=== PATIENT | female | born 1980 | race Caucasian/White ===

== ENCOUNTER → 2019-12-07 07:39 | Outpatient (CLI) | payer OTHER, SELFPAY ==
--- NOTE | ~2019-12-07 | MR_ITS ---
EXAMINATION: MR cervical spine wo con EXAM DATE: 12/07/2019 08:30 INDICATION: Neck pain, right shoulder and arm pain since July 2019. TECHNIQUE: Multi-sequential, multiplanar MR images of the cervical spine were obtained without contra st. Axial T2, axial T2 MERGE sequence. Sagittal T1, T2, T2 fat saturation images also obtained. Th ere is no prior study for comparison. FINDINGS: There is a moderate-sized right central disc protrusion/extrusion at the C5-6 level indent ing the spinal cord without cord edema, and also narrowing the C5-6 right lateral recess. This is lik geovanny the etiology for patient's symptoms as described above. Mild to moderate loss of this disc height and mild kyphosis centered at this level. The vertebral body and disc heights are otherwise well maintained. The vertebral bodies are aligned i n the AP dimension. Cervicomedullary junction is normal in appearance. There are no suspicious marrow signal abnormalities. Paraspinal soft tissue is unremarkable. Level by level evaluation: C2-C3: Disc does not extend beyond the endplate margin. Uncovertebral joint arthropathy: None. Facet joint arthropathy: None. Neural foraminal stenosis: No stenosis. Central canal stenosis: No stenosis. C3-C4: Disc does not extend beyond the endplate margin. Uncovertebral joint arthropathy: None. Facet joint arthropathy: Mild bilateral. Neural foraminal stenosis: No stenosis. Central canal stenosis: No stenosis. C4-C5: Disc does not extend beyond the endplate margin. Uncovertebral joint arthropathy: Minimal bilateral. Facet joint arthropathy: Mild bilateral. Neural foraminal stenosis: No stenosis. Central canal stenosis: No stenosis. C5-C6: Moderate-sized right central protrusion/extrusion extending into the neural foramina. Uncovertebral joint arthropathy: Mild to moderate right, mild left. Facet joint arthropathy: None. Neural foraminal stenosis: Mild to moderate at the lateral recess. Central canal stenosis: Mild. C6-C7: Disc does not extend beyond the endplate margin. Uncovertebral joint arthropathy: Mild bilateral. Facet joint arthropathy: None. Neural foraminal stenosis: Mild left. Central canal stenosis: No stenosis. C7-T1: Disc does not extend beyond the endplate margin. Uncovertebral joint arthropathy: None. Facet joint arthropathy: None. Neural foraminal stenosis: No stenosis. Central canal stenosis: No stenosis. IMPRESSION: C5-6 moderate-sized right central protrusion indenting the spinal cord and narrowing the right lateral recess. No cord edema to suggest acute cord compression. Reviewed, dictated and finalized at location B. IMPRESSION: C5-6 moderate-sized right central protrusion indenting the spinal c ord and narrowing the right lateral recess. No cord edema to suggest acute cord compression.
== END ==
PROVIDERS: PCP Physician Assistant Medical; Visit Provider Physician Assistant Medical
DX: M25.511 Pain in right shoulder (principal); R20.2 Paresthesia of skin; M50.222 Other cervical disc displacement at C5-C6 level
CPT/HCPCS: 72141

== ENCOUNTER 2022-06-12 16:51 | Emergency (ER) | payer OTHER, SELFPAY ==
--- NOTE | 2022-06-12 16:54 | ED.URI ---
HPI - URI/Sore Throat General Chief Complaint: Upper Respiratory Infection Stated Complaint: Congestion,Cough,Bilateral Ear Irritation Time Seen by Provider: 06/12/22 17:03 Source: patient, RN notes reviewed and old records reviewed Mode of arrival: ambulatory Limitations: no limitations History of Present Illness HPI Narrative: 41-year-old female presents to the [facility] with 6-7 days of cough, congestion, bilateral ear pain. Has tried multiple onap-quu-elrfiwt products. Has had low-grade fevers. and child are sick at home. Related Data Allergies Allergy/AdvReac Type Severity Reaction Status Date / Time Sulfa (Sulfonamide Allergy Mild RASH,ITCHIN Verified 06/12/22 17:08 Antibiotics) G Review of Systems Review of Systems: All systems reviewed & are unremarkable except as noted in HPI and below Constitutional: Constitutional: Reports as per HPI Eyes: Eyes: Reports no additional eye complaints ENT: Reports as per HPI Cardiovascular: Cardiovascular: Reports no additional cardiovascular complaints, Denies chest pain and Denies dyspnea Respiratory: Respiratory: Reports as per HPI, Reports chest congestion, Reports cough and Denies dyspnea Gastrointestinal: Gastrointestinal: Reports no additional gastrointestinal complaints, Denies abdominal pain, Denies nausea and Denies vomiting Musculoskeletal: Musculoskeletal: Reports no additional musculoskeletal complaints Integumentary/Breasts: Skin/Breast: Reports system reviewed and no additional complaints, except as docu Neurologic: Reports system reviewed and no additional complaints, except as documented Psychiatric: Psychiatric: Reports no additional psychiatric complaints Allergic/Immunologic: Allergic/Immunologic: Reports no additional allergic/immunologic complaints PMFSH Comments At the time of my signature, I reviewed and agree with the nursing past medical, surgical, social, and family history. There is no relevant family history pertinent to the patient complaint. Exam Const: General: cooperative, healthy appearing, comfortable, no acute distress, well developed, alert and well nourished Nutritional Appearance: well nourished and obese Orientation/consciousness: patient oriented x3 Limitations: no limitations HENMT: Head: normal to inspection Ears: hearing grossly normal bilaterally and external ears normal Face/Nose/Sinus: Normal external nose present, Normal nares present, Normal nasal mucous membranes and turbinates present and normal facial exam Face and sinus: normal facial exam Mouth: Yes Normal oral and palatal mucosa present, Yes lip normal and Yes moist mucous membranes Throat: posterior oropharynx normal and uvula midline Eyes: General: appearance normal, both eyes and all related structures Alignment and Position: alignment normal Periorbital: periorbital findings normal Conjunctivae: conjunctivae normal Pupils: Equal, round and reactive pupils present EOM: EOMs intact bilaterally Neck: Neck: normal visual inspection, full ROM, no lymphadenopathy and no meningeal signs Chest: Chest palpation & inspection: normal inspection of the chest Resp: Effort & Inspection: normal respiratory effort and able to speak in complete sentences Auscultation: no crackles, no rales, no rhonchi and wheezes expiratory wheezes and left lower Cardio: Rate: regular rate Rhythm: regular rhythm Back/Spine/Pelvis: Cervical Spine: cervical ROM normal Thoracic/Lumbar Spine: No thoracic spinal tenderness Skin: General skin exam: normal color and no rashes or lesions noted Lesions: no lesions Rashes: no rashes Wounds: no wounds Neuro: General: patient oriented x3, gait normal, tone normal, moves all extremities and no meningeal signs Cranial nerves: Yes Equal, round and reactive pupils present Cognition (Neuro): normal cognition Speech: normal speech Gait exam (Neuro): Normal gait present Extrem: General: normal to inspection, full ROM, capillary r
[2022-06-12 17:02] VITALS: BP 137/92; PULSE 91; RESP 18; TEMP 36.2; O2SAT 100
== END 2022-06-12 17:19 | disposition home or self-care (01) ==
PROVIDERS: Emergency Provider Nurse Practitioner; PCP Physician Assistant Medical
DX: J40 Bronchitis, not specified as acute or chronic (principal)
CPT/HCPCS: 99213; G0463

== ENCOUNTER 2022-10-02 07:21 | Outpatient (CLI) | payer OTHER, SELFPAY ==
--- NOTE | 2022-10-02 | ECHO_ITS ---
Patient Info Name: Kimmy Rodrigues Age: 41 years : 1980 Gender: Female Ht: 67 in Wt: 300 lbs BSA: 2.61 m2 HR: 84 bpm BP: 155 / 101 mmHg Heart Rhythm: Sinus Rhythm Exam Date: 10/02/2022 8:19 AM Exam Location: [facility] Patient Status: Outpatient Admit Date: 10/02/2022 Staff Ordering Physician: Constantino Clifford MD (nasreen/sudhir) Auto Rental Clerk: Fran Murray, RDCS, RT Attending Provider: Constantino Clifford MD (nasreen/sudhir) Referring Physician: Darrin DE SOUZA; Exam Type: CA echo doppler color flow Study Info Indications R00.2 - Palpitations Complete two-dimensional, color flow and Doppler transthoracic echocardiogram is performed. Strain analysis performed. Summary 1. Complete two-dimensional, color flow and Doppler transthoracic echocardiogram is performed. 2. Technically difficult parasternal images but good quality apical images presumably related to obesity. 3. Normal left ventricular systolic and diastolic function. 4. No valvular dysfunction. 5. Very small amount of tricuspid regurgitation seen. Left Ventricle Left ventricular chamber dimension is normal. Left ventricular systolic function is normal, estimated at 60-65%. The left ventricular diastolic function is normal. Right Ventricle Right ventricular chamber dimension is normal. Left Atria Left atrial chamber dimension is normal. Right Atria Right atrial chamber dimension is normal. Aortic Valve The aortic valve is normal. Pulmonic Valve The pulmonic valve is not well visualized. Mitral Valve The mitral valve has normal leaflets. Tricuspid Valve The tricuspid valve leaflets are normal. There is trace tricuspid valve regurgitation. Pericardium/Pleural The pericardium appears normal. Aorta The aortic root size at the sinus of Valsalva is normal. Left Ventricular Outflow Tract Name Value Normal LVOT Doppler LVOT Peak Gradient 4 mmHg LVOT Mean Gradient 2 mmHg LVOT VTI 20 cm LVOT VTI/AV VTI Ratio 0.7 Mitral Valve Name Value Normal MV Doppler MV Decel [place] 574 cm/s2 MV PHT 37 ms MV Area (PHT) 6.0 cm2 4.0-5.0 MV Diastolic Function MV E Peak Velocity 73 cm/s MV A Peak Velocity 67 cm/s MV E/A 1.1 MV Decel Time 127 ms MV Annular TDI MV E/e' (Septal) 7.3 <=8.0 MV E/e' (Lateral) 4.5 <=8.0 MV E/e' (Average) 5.9 Tricuspid Valve N
== END 2022-10-02 07:22 | disposition home or self-care (01) ==
PROVIDERS: PCP Nurse Practitioner Family; Visit Provider Internal Medicine
DX: R00.2 Palpitations (principal)
CPT/HCPCS: 93306

== ENCOUNTER 2024-06-16 09:41 | Emergency (ER) | payer OTHER, SELFPAY ==
--- NOTE | ~2024-06-16 | US_ITS ---
EXAMINATION: US transvaginal DATE: 06/16/2024 14:19 INDICATION: Left pelvic pain. TECHNIQUE: Multiple transvaginal sonographic images of the pelvis were obtained. COMPARISON: None. FINDINGS: The uterus measures 9.1 x 4.6 x 5.5 cm. There is no free fluid in the pelvis. The endometrial complex measures 5 mm in thickness. There is a 10 mm submucosal fibroid. There is a 13 mm intramural fibroid . There is a 2.0 cm intramural fibroid. The right ovary measures 3.2 x 3.0 x 2.3 cm. The left ovary i s not visualized. IMPRESSION: 1. Uterine fibroids. 2. Left ovary not visualized. Reviewed, dictated and finalized at location A. TUB COOKER
--- NOTE | ~2024-06-16 | CT_ITS ---
EXAMINATION: CT abdomen pelvis w con DATE: 06/16/2024 14:31 INDICATION: Left lower quadrant abdominal pain. TECHNIQUE: Computed tomography (CT) of the abdomen and pelvis was performed with 100 mL Omnipaque 350 intravenous contrast. Automated exposure control and iterative reconstruction technique were employe d. The dose-length product was 1518.67 mGy-cm. COMPARISON: CT abdomen 05/18/2005 FINDINGS: The visualized portions of lung bases demonstrate minimal atelectasis on the left. No pleur al effusion. The heart size is normal. No pericardial effusion. The liver, gallbladder, spleen, pancr eas, adrenal glands, and kidneys are normal. There are no dilated loops of bowel. The appendix is nor mal. There are no pathologically enlarged lymph nodes. There is no free intraperitoneal fluid. There are chronic bilateral L5 pars defects. There is mild thoracic and lumbar spondylosis. IMPRESSION: 1. No etiology for the patient's symptoms. Reviewed, dictated and finalized at location A. ER TENDER
[2024-06-16 09:44] VITALS: BP 206/103; PULSE 90; RESP 16; TEMP 36.6; O2SAT 98
--- NOTE | 2024-06-16 13:12 | ED_ITS ---
HPI - Abdominal Pain General Chief Complaint: Abdominal Pain <Shirley Aguilar PA-C - Last Filed: 06/16/24 13:13> Stated Complaint: LLQ pain <Shirley Aguilar PA-C - Last Filed: 06/16/24 13:13> Time Seen by Provider: 06/16/24 13:15 <Shirley Aguilar PA-C - Last Filed: 06/16/24 13:13> Focused HPI: Year old female presents to the emergency department for left lower quadrant/pelvic pain since 2:30 a.m. this morning. Patient describes the pain is waxing and waning. States when it is at its highest intensity it is sharp, otherwise it is dull. She is concerned she may have a ruptured ovarian cyst. She denies nausea, vomiting, diarrhea, dysuria hematuria, vaginal, discharge, concern for STDs. Denies history of kidney stones or flank pain. Last bowel movement yesterday and normal. GENERAL: Well-appearing, well-nourished, and in no acute distress. HEAD: Normocephalic, atraumatic. CHEST: Clear to auscultation. ?No respiratory distress. ABD: Tenderness to the left lower quadrant/pelvis no rebound or rigidity. No CVA tenderness. HEART: Regular rate and rhythm.? NEURO: ?Alert and oriented x3. Patient screened in triage and initial orders placed.? ?Additional care and disposition to be based upon?diagnostic testing and treatment. <Shirley Aguilar PA-C - Last Filed: 06/16/24 13:13> History of Present Illness HPI narrative: Agree with the HPI above <Gurjit Greer MD - Last Filed: 06/16/24 21:42> Related Data Allergies/Adverse Reactions: Allergies Allergy/AdvReac Type Severity Reaction Status Date / Time Sulfa (Sulfonamide Allergy Mild RASH,ITCHIN Verified 07/22/22 09:23 Antibiotics) G <Shirley Aguilar PA-C - Last Filed: 06/16/24 13:13> Review of Systems 2 Review of Systems: as reviewed above in HPI <Gurjit Greer MD - Last Filed: 06/16/24 21:42> PMFSH Social History Social History: Social History Smoking status: Never smoker Alcohol intake: current Alcohol use details: weekends Substance use: never Substance use type: does not use Lack of Transportation: No Lack of Food: Never True Current Housing: I Have Housing Concerned About Future Housing: No Difficulty Paying Gas/Electric Bills: No Difficulty Paying for Meds: No Currently Unemployed: No Education: Associate Degree Difficulty w/ Childcare or Family Care: No Living arrangements: with family Occupation/Education: occupation Gender identity (if verbalized by the patient): Female Sexual Orientation (if Verbalized by the Patient): Straight or Heterosexual <Shirley Aguilar PA-C - Last Filed: 06/16/24 13:13> Exam 2 Narrative: GENERAL: [Well-appearing, well-nourished, and in no acute distress.] HEAD: [Normocephalic, atraumatic.] EYES: [PERRLA and EOMI.] ENT: Nares clear, no rhinorrhea or epistaxis. Mucous membranes moist. NECK: Supple. CHEST: [Clear to auscultation. No respiratory distress.] HEART: [Regular rate and rhythm]. No murmur heard. [Normal peripheral pulses.] ABDOMEN: [Soft, nondistended], protuberant, minimally tender to palpation left lower quadrant but no rebound or guarding, no signs of peritonitis, negative obturator sign, negative straight leg raise test. EXTREMITIES: Normal range of motion. [No edema.] SKIN: Warm, dry, no rash. NEURO: [No focal deficits]. Alert and oriented [x3.] PSYCH: [Normal mood and affect.] <Gurjit Greer MD - Last Filed: 06/16/24 21:42> Course Vital Signs Vital signs: Vital Signs Temperature 36.6 C 06/16/24 09:44 Pulse Rate 90 06/16/24 09:44 Respiratory Rate 16 06/16/24 09:44 Blood Pressure 206/103 H 06/16/24 09:44 Pulse Oximetry 98 06/16/24 09:44 Temperature 36.6 C 06/16/24 09:44 Pulse Rate 90 06/16/24 09:44 Respiratory Rate 16 06/16/24 09:44 Blood Pressure 206/103 H 06/16/24 09:44 Pulse Oximetry 98 06/16/24 09:44 <Shirley Aguilar PA-C - Last Filed: 06/16/24 13:13> Vital Signs Temperature 36.6 C 06/16/24 09:44 Pulse Rate 90 06/16/24 09:44 Respiratory Rate 16 06/16/24 09:44 Blood Pressure 206/103 H 06/16/24 09:44 Pulse Oximetry 98 06/16/24 09:44 Temperature 36.6 C 06/16/24 09:44 Pulse Rate 90 06/16/24 09:44 Respiratory Rate 16 06/16/24 09:44 Blood Pressure 206/103 H 06/16/24 09:44 Pulse Oximetry 98 06/16/24 09:44 <Gurjit Greer MD - Last Filed: 06/16/24 21:42> MDM - Abdominal Pain MDM Narrative Medical decision making narrative: 43-year-old female presenting to the emergency department for intermittent left lower quadrant abdominal pain. She stated woke up from sleep at about 230 in the morning. When way without any significant complaints such as nausea vomiting. No diarrhea, no fever chills. Stated recurred while she was walking around at work today and want to get evaluated emergency department. She has a soft nondistended, minimally tender abdomen left lower quadrant but otherwise is well appearing. Is hypertensive with triage vital 206/103 but otherwise have no symptoms of hypertension, no chest pain, difficulty breathing, nausea, vomiting, back pain. She has strong symmetric pulses throughout. Warm extremities. She is concerned about a potential ovarian pathology such as a ruptured cyst. She has had multiple C-sections but no other abdominal surgeries in the past. She otherwise been in her normal state of health. Given her soft abdomen, no signs of peritonitis or significant abdominal tenderness suspicion for ovarian or abdominal pathology such as diverticulitis, diverticulosis, gastroenteritis, ovarian torsion versus less likely but possible. CT of the abdomen pelvis and ultrasound of the pelvis was obtained as well as laboratory studies. During my assessment the patient she is not having any pain and presently not requiring any analgesia. Workup shows no leukocytosis or anemia. normal Electrolytes within normal limits, normal renal and hepatic function panel. Normal platelets. urinalysis without signs of infection. Negative test. Ultrasound shows uterine fibroids, not visualized well left or very. Right ovary within normal limits. No free fluid in the pelvis. CT abdomen pelvis shows no etiology for patient's symptoms per radiology's interpretation. No intra-abdominal or peritoneal free fluid. Patient was re-evaluated and still having no symptoms at this time. We went over patient's imaging studies and laboratory assessment. I discussed the possibility that her fibroid uterus with multiple fibroids could be the cause of her vague intermittent pain and recommended trying therapies with high-dose NSAID therapy. I referred her to her OBGYN as well as trying her OBGYN follow- up instructions as well as return precautions. Patient felt comfortable this plan of care and was stable for discharge home at this time. She was given return precautions and will be follow-up instructions. <Gurjit Greer MD - Last Filed: 06/16/24 21:42> Medical Records Attestation: I reviewed the patient's medical records. <Gurjit Greer MD - Last Filed: 06/16/24 21:42> Lab Data Attestation: I reviewed the patient's lab results. <Gurjit Greer MD - Last Filed: 06/16/24 21:42> Result diagrams: 06/16/24 13:26 06/16/24 13:26 <Shirley Aguilar PA-C - Last Filed: 06/16/24 13:13> Labs: Lab Results 06/16/24 06/16/24 06/16/24 Range/Units 13:26 14:53 14:55 WBC 6.3 (4.5-10.0) K/mm3 RBC 4.07 L (4.2-5.4) M/mm3 Hgb 12.1 (12.0-15.0) g/dL Hct 36.3 L (37.0-47.0) % MCV 89.2 (80-100) fl MCH 29.7 (26-34) pg MCHC 33.3 (32-36) g/dl RDW 13.3 (11.5-14.5) % Plt Count 212 (150-375) k/mm3 MPV 10.0 (7.4-10.4) fl Immature Gran % (Auto) 0.2 (0-0.5) % Neut % (Auto) 70.3 (45.5-73.1) % Lymph % (Auto) 20.3 (18.3-44.2) % [place] % (Auto) 7.7 (2.6-8.5) % Eos % (Auto) 1.0 (0-4.4) % Baso % (Auto) 0.5 (0.2-1.2) % Lymph # (Auto) 1.27 (0.9-3.2) K/mm3 [place] # (Auto) 0.5 (0.1-0.6) K/mm3 Eos # (Auto) 0.1 (0-0.3) K/mm3 Baso # (Auto) 0.0 (0.0-0.1) K/mm3 Abs Immat Gran (auto) 0.01 (0.00-0.031) K/mm3 Absolute Neuts (auto) 4.4 (1.3-6.7) K/mm3 Absolute Nucleated RBC 0.000 (0.0-0.012) K/mm3 Nucleated RBC % 0.0 (0.0-0.2) % Sodium 137 (137-145) mmol/L Potassium 4.0 (3.4-5.0) mmol/L Chloride 107 (98-107) mmol/L Carbon Dioxide 26 (22-30) mmol/L Anion Gap 4 (4-12) mmol/L BUN 13 (7-17) mg/dL Creatinine 0.70 (0.7-1.0) mg/dL Estim Creat Clear Calc 134 ml/min Estimated GFR > 60 (59 - ) Glucose 99 (65-110) mg/dL Calcium 8.9 (8.4-10.2) mg/dL Total Bilirubin 0.8 (0.2-1.3) mg/dL AST 18 (14-36) U/L ALT 15 (6-35) U/L Alkaline Phosphatase 72 (38-126) U/L Total Protein 7.0 (6.3-8.2) g/dL Albumin 4.1 (3.5-5.1) g/dL Lipase 41 (23-300) U/L Urine Color Yellow (Yellow) Urine Appearance Clear (Clear) Urine pH 5.5 (5.0-9.0) Ur Specific [place] 1.013 (1.001-1.035) Urine Protein Negative (Negative) mg/dL Urine Glucose (UA) Negative (Negative) mg/dL Urine Ketones Negative (Negative) mg/dL Ur Blood (Man) Negative (Negative) Urine Nitrate Negative (Negative) Urine Bilirubin Negative (Negative) Urine Urobilinogen 0.2 (<2.0) mg/dL Leukocyte Esterase Rfl Negative (Negative) SHERRY/UL POC Urine HCG, Qual Negative (Negative) <Shirley Aguilar PA-C - Last Filed: 06/16/24 13:13> Lab Results 06/16/24 06/16/24 06/16/24 Range/Units 13:26 14:53 14:55 WBC 6.3 (4.5-10.0) K/mm3 RBC 4.07 L (4.2-5.4) M/mm3 Hgb 12.1 (12.0-15.0) g/dL Hct 36.3 L (37.0-47.0) % MCV 89.2 (80-100) fl MCH 29.7 (26-34) pg MCHC 33.3 (32-36) g/dl RDW 13.3 (11.5-14.5) % Plt Count 212 (150-375) k/mm3 MPV 10.0 (7.4-10.4) fl Immature Gran % (Auto) 0.2 (0-0.5) % Neut % (Auto) 70.3 (45.5-73.1) % Lymph % (Auto) 20.3 (18.3-44.2) % [place] % (Auto) 7.7 (2.6-8.5) % Eos % (Auto) 1.0 (0-4.4) % Baso % (Auto) 0.5 (0.2-1.2) % Lymph # (Auto) 1.27 (0.9-3.2) K/mm3 [place] # (Auto) 0.5 (0.1-0.6) K/mm3 Eos # (Auto) 0.1 (0-0.3) K/mm3 Baso # (Auto) 0.0 (0.0-0.1) K/mm3 Abs Immat Gran (auto) 0.01 (0.00-0.031) K/mm3 Absolute Neuts (auto) 4.4 (1.3-6.7) K/mm3 Absolute Nucleated RBC 0.000 (0.0-0.012) K/mm3 Nucleated RBC % 0.0 (0.0-0.2) % Sodium 137 (137-145) mmol/L Potassium 4.0 (3.4-5.0) mmol/L Chloride 107 (98-107) mmol/L Carbon Dioxide 26 (22-30) mmol/L Anion Gap 4 (4-12) mmol/L BUN 13 (7-17) mg/dL Creatinine 0.70 (0.7-1.0) mg/dL Estim Creat Clear Calc 134 ml/min Estimated GFR > 60 (59 - ) Glucose 99 (65-110) mg/dL Calcium 8.9 (8.4-10.2) mg/dL Total Bilirubin 0.8 (0.2-1.3) mg/dL AST 18 (14-36) U/L ALT 15 (6-35) U/L Alkaline Phosphatase 72 (38-126) U/L Total Protein 7.0 (6.3-8.2) g/dL Albumin 4.1 (3.5-5.1) g/dL Lipase 41 (23-300) U/L Urine Color Yellow (Yellow) Urine Appearance Clear (Clear) Urine pH 5.5 (5.0-9.0) Ur Specific [place] 1.013 (1.001-1.035) Urine Protein Negative (Negative) mg/dL Urine Glucose (UA) Negative (Negative) mg/dL Urine Ketones Negative (Negative) mg/dL Ur Blood (Man) Negative (Negative) Urine Nitrate Negative (Negative) Urine Bilirubin Negative (Negative) Urine Urobilinogen 0.2 (<2.0) mg/dL Leukocyte Esterase Rfl Negative (Negative) SHERRY/UL POC Urine HCG, Qual Negative (Negative) <Gurjit Greer MD - Last Filed: 06/16/24 21:42> Imaging Data Attestation: I personally reviewed and interpreted this imaging study as follows: < Gurjit Greer MD - Last Filed: 06/16/24 21:42> Radiologist's impression: ITS Impressions Transvaginal US 06/16/24 14:20 IMPRESSION: 1. Uterine fibroids. 2. Left ovary not visualized. Abdomen/Pelvis CT 06/16/24 14:49 IMPRESSION: 1. No etiology for the patient's symptoms. <Shirley Aguilar PA-C - Last Filed: 06/16/24 13:13> ITS Impressions Transvaginal US 06/16/24 14:20 IMPRESSION: 1. Uterine fibroids. 2. Left ovary not visualized. Abdomen/Pelvis CT 06/16/24 14:49 IMPRESSION: 1. No etiology for the patient's symptoms. <Gurjit Greer MD - Last Filed: 06/16/24 21:42> Discharge Plan Discharge Clinical Impression: Fibroid, uterine, Pelvic pain, Abdominal pain <Shirley Aguilar PA-C - Last Filed: 06/16/24 13:13> Patient Disposition: Home, Self-Care <Shirley Aguilar PA-C - Last Filed: 06/16/24 13:13> Condition: Stable <Shirley Aguilar PA-C - Last Filed: 06/16/24 13:13> Instructions: Antibiotic Form, Uterine Fibroids (ED), Abdominal Pain (ED) <Shirley Aguilar PA-C - Last Filed: 06/16/24 13:13> Additional Instructions: your CT scan and ultrasound shows uterine fibroids but no other acute process. No signs of infection, your labs look very reassuring. Recommendations to take high-dose ibuprofen and NSAID therapy and follow-up with group insurance special agent. Please call your own group insurance special agent but will also refer you to our woman center who can evaluate you on outpatient basis. Return with any new or worsening concerns at any time. <Shirley Aguilar PA-C - Last Filed: 06/16/24 13:13> Patient Language: Luxembourger <Shirley Aguilar PA-C - Last Filed: 06/16/24 13:13> Prescriptions: New ibuprofen 800 mg tablet 800 mg PO TID PRN (Reason: pain) Qty: 30 0RF No Action montelukast [Singulair] 10 mg tablet 10 mg PO DAILY Qty: 14 0RF codeine-guaifenesin 10-100 mg/5 mL liquid See Rx Instructions PO Q6H PRN (Reason: cough) Qty: 120 0RF Rx Instructions: 1-2 tsp orally every 6 hours PRN for cough fluticasone propionate [Flovent HFA] 110 mcg/actuation HFA aerosol inhaler 1 puff inhalation Q12H Qty: 12 1RF benzonatate 100 mg capsule 100 mg PO TID PRN (Reason: cough) Qty: 30 0RF metoprolol succinate 25 mg tablet extended release 24 hr 25 mg PO DAILY Qty: 30 1RF albuterol sulfate 90 mcg/actuation HFA aerosol inhaler 1 - 2 inh inhalation Q4-6H PRN (Reason: shortness of breath or wheezing) Qty: 8.5 0RF <Shirley Aguilar PA-C - Last Filed: 06/16/24 13:13> Follow-up/Referrals: Osmar Farmer MD [Physician] - 1 Week (Fibroids) Jessica Menezes, SOUND ENGINEER [employer]-C [Primary Care Provider] - <Shirley Aguilar PA-C - Last Filed: 06/16/24 13:13> Time of Disposition: 17:33 <Shirley Aguilar PA-C - Last Filed: 06/16/24 13:13> 17:33 <Gurjit Greer MD - Last Filed: 06/16/24 21:42>
[2024-06-16 13:57] LABS: Basophils Percent Auto 0.5 % (0.2-1.2); Eosinophils Absolute Auto 0.1 K/mm3 (0-0.3); Hematocrit 36.3 % (37.0-47.0); Hemoglobin 12.1 g/dL (12.0-15.0); Immature Granulocyte Absolute 0.01 K/mm3 (0.00-0.031); Immature Granulocyte Percent A 0.2 % (0-0.5); Lymphocytes Absolute Auto 1.27 K/mm3 (0.9-3.2); Lymphocytes Percent Auto 20.3 % (18.3-44.2); Mean Corpuscular HGB Conc 33.3 g/dl (32-36); Mean Corpuscular Hemoglobin 29.7 pg (26-34); Mean Corpuscular Volume 89.2 fl (80-100); Monocytes Absolute Auto 0.5 K/mm3 (0.1-0.6); Monocytes Percent Auto 7.7 % (2.6-8.5); Neutrophils Absolute Auto 4.4 K/mm3 (1.3-6.7); Neutrophils Percent Auto 70.3 % (45.5-73.1); Platelet Count Result 212 k/mm3 (150-375); Red Blood Count 4.07 M/mm3 (4.2-5.4); Red Cell Distribution Width 13.3 % (11.5-14.5); White Blood Count 6.3 K/mm3 (4.5-10.0)
[2024-06-16 14:10] LABS: Alanine Aminotransferase 15 U/L (6-35); Albumin Level 4.1 g/dL (3.5-5.1); Alkaline Phosphatase 72 U/L (38-126); Anion Gap 4 mmol/L (4-12); Aspartate Amino Transferase 18 U/L (14-36); Bilirubin,Total 0.8 mg/dL (0.2-1.3); Blood Urea Nitrogen 13 mg/dL (7-17); Calcium 8.9 mg/dL (8.4-10.2); Carbon Dioxide 26 mmol/L (22-30); Chloride 107 mmol/L (98-107); Estimated CRCL calculation 134 ml/min; Estimated Glomerular Filt Rate > 60; Glucose 99 mg/dL (65-110); Lipase 41 U/L (23-300); Sodium 137 mmol/L (137-145)
[2024-06-16 14:57] LABS: BEDSIDEPREGUCG Negative (Negative)
[2024-06-16 15:13] LABS: Add Urine Microscopic? NO; Appearance Urine Clear (Clear); Bilirubin Urine Negative (Negative); Blood Urine Negative (Negative); Color Urine Yellow (Yellow); Glucose Urine UA Negative (Negative); Ketones Urine Negative (Negative); Leukocyte Esterase Ur Negative LEU/UL (Negative); Nitrate Urine Negative (Negative); Protein Urine Negative (Negative); Specific Grav Ur 1.013 (1.001-1.035); Urobilinogen Urine 0.2 mg/dL (<2.0); pH Urine 5.5 (5.0-9.0)
== END 2024-06-16 18:10 | disposition home or self-care (01) ==
PROVIDERS: Physician Assistant; Emergency Provider Student in an Organized Health Care Education/Training Program; PCP Nurse Practitioner Family
DX: R10.2 Pelvic and perineal pain (principal); D25.9 Leiomyoma of uterus, unspecified
CPT/HCPCS: 36415; 74177; 76830; 80053; 81003; 81025; 83690; 85025; 99284; Q9967

== ENCOUNTER 2024-09-09 10:07 | Emergency (ER) | payer OTHER, SELFPAY ==
--- OUTSIDE RECORDS SUMMARY | 2024-09-09 10:10 | XMS_ITS ---
Author Organization Unknown Medications Medication Instructions Effective Dates (start - stop) Status 0.5 ML Bordetella pertussis filamentous hemagglutinin vaccine, inactivated 0.016 MG/ML / Bordetella pertussis pertactin vaccine, inactivated 0.005 MG/ML / Bordetella pertussis toxoid vaccine, inactivated 0.016 MG/ML / diphtheria toxoid vaccine, inactivated 5 UNT/ML / tetanus toxoid vaccine, inactivated 10 UNT/ML Prefilled Syringe [Boostrix] [id number]:00:00.000+00:0 0 - Completed codeine phosphate 2 MG/ML / guaifenesin 20 MG/ML Oral Solution [id number]:00:00.000+00:0 0 - Completed prednisone 10 MG Oral Tablet 08-13-23:00:00.000+00:00 - Completed 120 ACTUAT fluticasone propi sridhar 0.11 MG/ACTUAT Metered Dose Inhaler [Flovent] [id number]:00:00.000+00:0 0 - Completed - [id number]:00 :00.000+00:00 - Completed [id number] 200 ACTUAT albuter ol 0.09 MG/ACTUAT Metered Dose Inhaler [id number]:00:00.000+00:0 0 - Completed prednisone 20 MG Oral Tablet 07-26-29T:00:00.000+00:00 - Completed prednisone 10 MG Oral Tablet 08-12-16:00:00.000+00:00 - Completed 24 HR metoprolol succinate 5 0 MG Extended Release Oral Tablet [id number]:00:00.000+0 0:00 - Completed cefdinir 300 MG Oral Capsule 08-13-14:00:00.000+00:00 - Completed benzonatate 100 MG Oral Capsule [id number]:00:00.000+00:00 - Completed doxycycline monohydrate 100 MG Oral Capsule [id number]:00:00.000+00:0 0 - Completed cefdinir 300 MG Oral Capsule 08-12-16:00:00.000+00:00 - Completed - [id number]:00 :00.000+00:00 - Completed 24 HR metoprolol succinate 5 0 MG Extended Release Oral Tablet [id number]:00:00.000+0 0:00 - Completed montelukast 10 MG Oral Tablet 06-07-26:00:00.000+00:00 - Completed 24 HR metoprolol succinate 2 5 MG Extended Release Oral Tablet [id number]:00:00.000+0 0:00 - Completed Patient Care team information Name Category Status Period Participants - - Proposed period not known -
--- OUTSIDE RECORDS SUMMARY | 2024-09-09 10:10 | XMS_ITS | Clinical Summary ---
Author Organization [facility] [place] [address] Address [address] [place] [address] Care Team Providers Care Heavy Equipment Service Manager Name Role Phone Cony Dejesus Primary Care Provider [phone] Allergies Active Allergy Reactions Criticality Noted Date Comments Sulfa (Sulfonamide Antibiotics) Itching,Rash Medium Medications metoprolol XL (TOPROL-XL) 50 mg extended release tablet TAKE 1 TABLET BY MOUTH EVERY DAY 90 tablet 3 10/01/2023 Active Active Problems Problem Noted Date Diagnosed Date Morbid obesity 10/23/2022 Palpitations 09/11/2022 Lipid screening 09/11/2022 Family History Medical History Relation Name Comments Diabetes Maternal Grandmother Hypertension Maternal Grandmother Relation Name Status Comments Maternal Grandmother Social History Tobacco Use Types Packs/Day Years Used Date Smoking Tobacco: Never Smokeless Tobacco: Never Tobacco Cessation:Counseling Given: Not Answered Personal Safety Answer Date Recorded Getting School Help Needed Not on file 06/21 Comments Unknown Sex and Gender Information Value Date Recorded Sex Assigned at Not on file Legal Sex Female 11:08 AM PATIENT CLERICAL ASSISTANT Gender Identity Not on file Sexual Orientation Not on file Obstetrics History Last Filed Vital Signs Vital Sign Reading Time Taken Comments Blood Pressure 122/70 07/30/2023 8:20 AM PATIENT CLERICAL ASSISTANT Pulse 62 07/30/2023 8:20 AM PATIENT CLERICAL ASSISTANT Temperature - - Respiratory Rate - - Oxygen Saturation 98% 07/30/2023 8:20 AM PATIENT CLERICAL ASSISTANT Inhaled Oxygen Concentration - - Weight 140.6 kg (310 lb) 07/30/2023 8:20 AM PATIENT CLERICAL ASSISTANT Height 170.2 cm (5' 7 ) 07/30/2023 8:20 AM PATIENT CLERICAL ASSISTANT Body Mass Index 48.55 07/30/2023 8:20 AM PATIENT CLERICAL ASSISTANT Plan of Treatment Health Maintenance Due Date Last Done Comments Breast Cancer Screening-Mammogram 1982 Cervical Cancer Screening 1982 Depression Screening 1982 Hepatitis C Screening 1982 Varicella Vaccines (1 of 2 - 13+ 2-dose series) 10/19/1995 Regular Well Visit/Exam 18-64 2000 Covid-19 Vaccine ( season) 2024 08/03/2020 Influenza Vaccine (#1) 2024 , 02/24/2021, 01/22/2019, Additional history exists DTaP/Tdap/Td Vaccine (3 - Td or Tdap) 03/25/2032 03/25/2022, 03/28/2010 Hepatitis B Screening Completed 02/24/2021 , 10/14/2020, 09/10/2020 HPV Vaccines Aged Out No longer eligi ble based on patient's age to complete this topic Pneumococcal vaccine <65 Aged Out No longer eligible based on patient's age to complete this topic Insurance [facility] Care Teams Heavy Equipment Service Manager Relationship Specialty Start Date End Date Cony Dejesus PA [address] [place] [id number] PCP - General Family Practice 08/21/22
--- OUTSIDE RECORDS SUMMARY | 2024-09-09 10:10 | XMS_ITS | Data Portability ---
Author Organization [facility] [place] Address [address] [place] [place] [address] Care Team Providers Care Insulation Board Back Tender Name Role Phone DUNCAN FISHMAN Primary Care Provider [phone] Assessment Encounter Date Assessment Date Assessment LastModified by Organization Details LastModified Time 08/04/2024 08/04/2024 Annual gynecological exam performed. Patient will come back in a year unless there are new symptoms. [email or web address] Not available 08/04/2024 14:55:49 Plan of Treatment Reminders Order Date Submit Date Provider Last Modified By Organization Details Last Modified Time Details Appointments None recorded. Lab None recorded. Referral None recorded. Procedures None recorded. Surgeries None recorded. Imaging MAMMO, screening, digital, bilateral 2024 025 [facility], [address], [place], [address], 04:07:03 US, pelvis 2024 025 frank [place], [facility] [address], [place], [address], 21:43:51 US, transvagina l 2024 025 divine [place], [facility] [address], [place], [address], 21:43:51 Medication Orders None recorded. Patient TargetsNo targets recorded. Patient InstructionsNo instructions recorded. Reason for Referral None Reported. Results Created Date Observation Date Name Description Value Unit Range Abnormal Flag Note LastModifiedBy Organization Detail LastModifiedTime 08/04/1908/04/2024 IMAGE GUIDE D PAP AND HPV REGAR DLESS image guided Pap, HPV regardless of Pap result SEE RESULT S BELOW CASE REPOR T: Cytol ogy Gynec ologi alka Repor t Case: [id number] Autho yuko iglesias Provi benitez: Fiona Grover MD Colle cted: 08/04 1457 Order ing Locat ion: [place] [facility] Recei trena: 08/05 0121 First Scree n: Edwina Carranza, CT Rescr een: Susan Lancaster, CT Speci men: Ryliejohny lin Pap - Image d, Cervi x STATE MENT OF ADEQU ACY: Satis facto ry for evalu ation Trans forma tion zone compo nent absen t The absen ce of an endoc ervic al compo nent was confi rmed by an addit ional scree ner. ----- ----- ----- ----- ----- ----- ----- ----- ----- ----- ----- ----- ----- ----- ----- ----- ----- ---- FINAL DIAGN OSIS: Negat alice for Intra epith elial Jose manzanares or Christelle ward (NIL) . 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 COMME NT: This speci men was revie wed by a Cytot echno logis t and/o r Patho logis t (as indic ated in this repor t) after evalu ation using the Thinp rep Imagi ng Syste m. CLINI ALKA INFOR MATIO N: Menst rual Statu s: LMP (if appli cable ): Clini alka Histo ry/Pr eviou s Pap: Type of Neopl latisha (if appli cable ): Signi fican t Clini alka Findi ngs: Other Histo ry: Hormo bryson (if appli cable ): PAP EDUCA CRISTINA L NOTE: The Pap Test is a scree delia test with an inher ent false negat alice rate. Liqui d-bas ed sampl ing may decre ase, but will not elimi alicia, false negat alice resul ts. A negat alice resul t does not precl ude the prese nce and/o r devel opmen t of disea se, since the prese nce of abnor mal cells in the sampl e depen ds on the locat ion of the lesio n and sampl ing techn ique. Jessica nued regul ar scree delia is the best metho d of cance r preve ntion . If repor lila cytol ogic findi ng do not corre late with physi alka and/o r histo rical findi ngs, furth er inves tigat ion is recom yue d, as clini lorie warrgilberto nted. Not Available [facility] [address], [place], [address], 08/08/2024 16:54:32 07/26/19 25 07/26/2024 US, anita s No observ ation record ed. [email or web address] [place] [address], [place], [address], 07/26/2024 12:50:59 07/26/19 25 07/26/2024 US, trans vagin al No observ ation record ed. [email or web address] [place] [address], [place], [address], 07/26/2024 12:51:20 07/26/19 25 07/26/2024 US, pelvi s No observ ation record ed. [email or web address] [address], [place], [address], 07/27/2024 00:15:11 Result Notes None recorded. Procedures Surgical History Date Name Laterality Status Provider Name and Address Organization Details Recorded Time 4 Caesarean Section completed [facility] 07/19/2024 11:34:09 4 Caesarean Section completed [facility] 07/19/2024 11:33:16 2 Caesarean Section completed [facility] 07/19/2024 11:33:31 Imaging Results Imaging Date Name Status LastModified by Organization Details LastModified Time 07/26/2024 US, pelvis completed [email or web address] [place] [address], [place], [address], 07/26/2024 12:50:59 07/26/2024 US, transvaginal completed [email or web address] [facility] [address], [place], [address], 07/26/2024 12:51:20 07/26/2024 US, pelvis completed [address], [place], [address], 07/27/2024 00:15:11 Procedure Notes None recorded. Medical Equipment None Reported. Allergies Allergen ID Allergen Name Allergen Category Reaction Reaction Severity Criticality Documentation Date Start Date Code Code System Note Provider Name and Address Organization Details Recorded Time 88289 sulfameth oxazole / trimethop rim medicatio n rash moderate Not available 07/19/2024 18628 RxNorm Adiliajohny Aguilar [facility] 11:20:20 Medications Name Sig Start Date Stop Date Status Note LastModified by Organization Details LastModified Time ibuprofen 800 mg tablet TAKE 1 TABLET BY MOUTH 3 TIMES A DAY NEEDED FOR PAIN 025 active Not Available Not Available Not Avai lable metoprolol succinate ER 50 mg tablet,exten ded release 24 hr TAKE 1 TABLET BY MOUTH EVERY DAY active Not Available Not Available No t Available metoprolol succinate ER 50 mg tablet,exten ded release active Not Available Not Available Not Available Vitals Date Recorded Body weight Body mass index (BMI) Body height Systolic blood pressure Diastolic blood pressure Provider Name and Address Organization Details Last Updated DateTime 07/19/2024 326485.0 4 g 48.4 kg/m2 170.18 cm 144 mm[Hg] 80 mm[Hg] Adilia Jeff [facility] 11:28:48 Date Recorded Body height Body mass index (BMI) Body weight Systolic blood pressure Diastolic blood pressure Provider Name and Address Organization Details Last Updated DateTime 08/04/2024 170.18 cm 49.3 kg/m2 330331.6 g 141 mm[Hg] 86 mm[Hg] Adilia Jeff [facility] 14:57:51 Social History Question Answer Notes LastModified by Organizat ion Details LastModified Time Tobacco Smoking Status Never Smoker [facility]y [email or web address] 07/19/2024 11:32:16 Do You Have An Advance Directive? No [email or web address] Information not available 07/19/2024 What Is Your Level Of Alcohol Consumption? Occasional [email or web address] Information not available 07/19/2024 How Many Years Have You Consumed Alcohol? 20 [email or web address] Information not available 07/19/2024 Are You Blind Or Do You Have Difficulty Seeing? No [email or web address] Information not available 07/19/2024 What Is Your Level Of Caffeine Consumption? Occasional [email or web address] Information not available 07/19/2024 In The 14 Days Before Symptom Onset, Have You Had Close Contact With A Laboratory-confir med COVID-19 While That Case Was Ill? No [email or web address] Information not available 07/19/2024 In The 14 Days Before Symptom Onset, Have You Had Close Contact With A Person Who Is Under Investigation For COVID-19 While That Person Was Ill? No [email or web address] Information not available 07/19/2024 Have You Been To An Area Known To Be High Risk For COVID-19? No [email or web address] Information not available 07/19/2024 Are You Currently Employed? Yes [email or web address] Information not available 07/19/2024 Are You Deaf Or Do You Have Serious Difficulty Hearing? No [email or web address] Information not available 07/19/2024 What Is The Highest Grade Or Level Of School You Have Completed Or The Highest Degree You Have Received? 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 No [email or web address] Information not available 07/19/2024 Do You Use Your Seat Belt Or Car Seat Routinely? Yes [email or web address] Information not available 07/19/2024 Are You Sexually Active? Yes [email or web address] Information not available 07/19/2024 Do You Have Smoke And Carbon Monoxide Detectors In Your Home? Yes [email or web address] Information not available 07/19/2024 How Much Tobacco Do You Smoke? No [email or web address] Information not available 07/19/2024 Do You Feel Stressed (tense, Restless, Nervous, Or Anxious, Or Unable To Sleep At Night)? CA10776-3 [email or web address] Information not available 07/19/2024 Do You Use Any Illicit Or Recreational Drugs? No [email or web address] Information not available 07/19/2024 Do You Use Sunscreen Routinely? Yes [email or web address] Information not available 07/19/2024 Have You Used IV Drugs? No [email or web address] Information not available 07/19/2024 Sex: Unknown Functional Status Question Answer Note LastModified by Organizat ion Details LastModified Time Do you have difficulty walking or climbing stairs? No [email or web address] Information not available 07/19/2024 Are you able to walk? YESWOREST Information not available 07/19/2024 Are you able to care for yourself? Yes [email or web address] Information not available 07/19/2024 Do you have difficulty dressing or bathing? No [email or web address] Information not available 07/19/2024 What is your exercise level? None Information not available 07/19/2024 Mental Status None recorded. Family History Relationship Description Onset Age of this Age Resolved Age Notes LastModified by Organization Details LastModified Time Unspecified Relation Family history unknown [email or web address] Not available 2024 11:20:20 Medical History Condition Response Other Y Gynecological History Statement/Question Response Abnormal Pap N N STIs/STDs N Was last menstrual period normal Y HPV Vaccine N Duration of Flow (days) 7 Current Control Method Ablation Age at First Child 28 Frequency of Cycle (Q days) 30 Sexually Active? Y Age of first menstrual cycle 15 Date of Last Pap Smear Sexual Problems? N LMP Unknown N Obstetrics History GPAL:G 4 P 0 0 2 2 Type Value Spontaneous 1 Living 2 Ectopics 1 Total 4 Past Encounters Encounter ID Performer Location Encounter Start Date Encounter Closed Date Diagnosis/Indication Diagnosis SNOMED-CT Code Diagnosis ICD10 Code Diagnosis Note [id number] JOSE RUBIO MD [place] [address] [address] 07/19/2024 11:13:26 07/20/2024 14:42:18 Pain in pelvis 94266889 R10.2 - patient reports 3 months of cyclic pelvic pain- lasts about 1 week- no inciting factors- amenorrhei c since ablation 8 years ago- pelvic US reviewed, per report 3 small fibroids however submucosa l fibroid appears suspicious for developing hematometr a due to trapped menstrual blood after endometria l ablation- recommend repeat US to reevaluate this area- discussed hematometr a as possible cause of pain; discussed treatment options including POPs vs hysterecto my; would not recommend IUD given possible endometria l scarring from ablation- rtc for WWE and US follow up Factor V L eiden mutation 043439430 D68.51 - no personal hx of blood clots- discussed safety of progestero ne only control if needed [id number] Marlen England [place] [address] [address] 07/26/2024 09:48:11 07/26/2024 10:39:26 Pain in pelvis 41542079 R10.2 [id number] JOSE RUBIO MD [place] [address] [address] 08/04/2024 14:39:00 08/07/2024 10:57:48 Gynecologic examination 54206294 Z01.419 Well woman care- Cervical cancer screening: Pap smear obtained today, will follow up on the results with the patient as they become available- Breast cancer screening: mammogram ordered- Colon cancer screening: does not qualify- HPV immunizati on: has not received- STD testing: declined- hereditary cancer screening: does not qualify for testing Pain in pelvis 88458229 R10.2 - patient reports 3 months of cyclic pelvic pain- lasts about 1 week- no inciting factors- amenorrhei c since ablation 8 years ago- recent pelvic US reviewed, three hypoechoic areas appear to be areas of hematometr a vs less likely necrotic fibroids- discussed hematometr a as cause of pain; discussed treatment options including POPs vs hysterecto my; would not recommend IUD given likely endometria l scarring from ablation- patient would like to try medical management with POPs prior to proceeding with surgical management - slynd samples given today, will follow up in 3 months if pain not improved; discussed hysterecto my and follow up with Dr. Newman at that time if pain is still present Health Concerns Section Related Observation LastModified by Organization Detai ls LastModified Time None Recorded Concern Status LastModified by Organization Details LastModified Time None Recorded Advance Directives Directive N: Payers Encounter Date Sequence Insurance Name Policy Number Policy Gonzalez Covered Member ID Gonzalez Member ID Guarantor Name 07/19/2024 1 [employer] - CHOICE (POS II) [id number] Kimmy Worman [id number] Kimmy Worman 07/26/2024 1 [employer] - CHOICE (POS II) [id number] Kimmy Worman [id number] Kimmy Worman 08/04/2024 1 [employer] - CHOICE (POS II) [id number] Kimmy Worman [id number] Kimmy Worman Notes Date Note Type Note Provider Name and Address Organization Details Recorded Time 07/19/2024 text/html Patient reports severe pelvic pain for the past 3 months. She reports 1 week of pain that worsens with activity and better with laying down. This has woken her up out of sleep. She had endometrial ablation 8 years ago and is amenorrheic. She has a hx of factor V leiden. No new medications. No associated symptoms. Pelvic US and CT scan performed at [facility], reviewed today along with labs. All overall normal. Pelvic US demonstrates 3 small fibroids, largest 2cm intramural. Endometrium difficult to evaluate due to hx of ablation. JOSE RUBIO MD [address], [place], [address], [facility] 07/20/2024 11:54:56 08/04/2024 text/html Presents today f or her annual well-woman exam. Denies abnormal vaginal discharge. She is sexually active and denies dyspareunia. She is using for contraception, and she states that she is satisfied with this method. She has not noticed any changes or masses in her breasts. She also presents to discuss her recent pelvic US due to 2-3 month history of cyclic pelvic pain. S/p endometrial ablation ~8 years ago. Continues to be amenorrheic. Previous imaging from OSH demonstrated possible fibroids, however on review of imaging the lesions were suspicious for regrowth of endometrial tissue. She has not had a period since recent visit. No new symptoms. JOSE RUBIO MD [address], [place], [address], [facility] 08/06/2024 23:01:59 OBGyn Episode Ob Episode Information Episode Created Date Number of Fetuses Patient Bloodtype Patient rh Status Prepregnancy Weight lbs Domestic Partner Domestic Partner Phone Father Name Hand Chain Maker Status 07/19/19 25 1 CLOSED Fetus Data First Name Last Name Admitted to NICU Weight (g) Sex Living Outcome Pediatric Complications Fetus ID Race Codes Race Delivery Type F [id number] Primary Familia Calculation Initial Familia Date Initial Exam Date Initial Exam Provider Initial Ultrasound Date Last Menstrual Period Date Ultra Sound Weeks Gestation 0 Eighteen To Twenty Week Afmilia Update Ultra Sound Date Fundal Height At Umbil Quickening Date Ultra Sound Latest Weeks Gestation Final Familia Confirmed By Final Familia Confirmed Date Final Familia Date Ultra Sound Latest Days Gestation 0 0 Menstrual History Last Menstrual Date Menses Monthly On Bcp Conception Prior Menses Frequency Hcg Plus Date Menarche Onset Age Delivery Information Delivery Date Delivery Type Labor Anesthesia Weeks Gestation Incision Type Labor Labor Length Hrs Delivered By Post Complications Tubal Sterilization Discharge Date Comments 2 Discharge Information Feeding Method Contraceptive Method Maternal HG B and HCT Levels Ob Episode Information Episode Created Date Number of Fetuses Patient Bloodtype Patient rh Status Prepregnancy Weight lbs Domestic Partner Domestic Partner Phone Father Name Hand Chain Maker Status 07/19/19 25 1 CLOSED Fetus Data First Name Last Name Admitted to NICU Weight (g) Sex Living Outcome Pediatric Complications Fetus ID Race Codes Race Delivery Type F [id number] Primary Familia Calculation Initial Familia Date Initial Exam Date Initial Exam Provider Initial Ultrasound Date Last Menstrual Period Date Ultra Sound Weeks Gestation 0 Eighteen To Twenty Week Familia Update Ultra Sound Date Fundal Height At Umbil Quickening Date Ultra Sound Latest Weeks Gestation Final Familia Confirmed By Final Familia Confirmed Date Final Familia Date Ultra Sound Latest Days Gestation 0 0 Menstrual History Last Menstrual Date Menses Monthly On Bcp Conception Prior Menses Frequency Hcg Plus Date Menarche Onset Age Delivery Information Delivery Date Delivery Type Labor Anesthesia Weeks Gestation Incision Type Labor Labor Length Hrs Delivered By Post Complications Tubal Sterilization Discharge Date Comments 4 Discharge Information Feeding Method Contraceptive Method Maternal HG B and HCT Levels Ob Episode Information Episode Created Date Number of Fetuses Patient Bloodtype Patient rh Status Prepregnancy Weight lbs Domestic Partner Domestic Partner Phone Father Name Hand Chain Maker Status 07/19/19 25 1 CLOSED Fetus Data First Name Last Name Admitted to NICU Weight (g) Sex Living Outcome Pediatric Complications Fetus ID Race Codes Race Delivery Type F [id number] Primary Familia Calculation Initial Familia Date Initial Exam Date Initial Exam Provider Initial Ultrasound Date Last Menstrual Period Date Ultra Sound Weeks Gestation 0 Eighteen To Twenty Week Familia Update Ultra Sound Date Fundal Height At Umbil Quickening Date Ultra Sound Latest Weeks Gestation Final Familia Confirmed By Final Familia Confirmed Date Final Familia Date Ultra Sound Latest Days Gestation 0 0 Menstrual History Last Menstrual Date Menses Monthly On Bcp Conception Prior Menses Frequency Hcg Plus Date Menarche Onset Age Delivery Information Delivery Date Delivery Type Labor Anesthesia Weeks Gestation Incision Type Labor Labor Length Hrs Delivered By Post Complications Tubal Sterilization Discharge Date Comments 0 Discharge Information Feeding Method Contraceptive Method Maternal HG B and HCT Levels Ob Episode Information Episode Created Date Number of Fetuses Patient Bloodtype Patient rh Status Prepregnancy Weight lbs Domestic Partner Domestic Partner Phone Father Name Hand Chain Maker Status 07/19/19 25 1 CLOSED Fetus Data First Name Last Name Admitted to NICU Weight (g) Sex Living Outcome Pediatric Complications Fetus ID Race Codes Race Delivery Type , Spontane ous [id number] Familia Calculation Initial Familia Date Initial Exam Date Initial Exam Provider Initial Ultrasound Date Last Menstrual Period Date Ultra Sound Weeks Gestation 0 Eighteen To Twenty Week Familia Update Ultra Sound Date Fundal Height At Umbil Quickening Date Ultra Sound Latest Weeks Gestation Final Familia Confirmed By Final Familia Confirmed Date Final Familia Date Ultra Sound Latest Days Gestation 0 0 Menstrual History Last Menstrual Date Menses Monthly On Bcp Conception Prior Menses Frequency Hcg Plus Date Menarche Onset Age Delivery Information Delivery Date Delivery Type Labor Anesthesia Weeks Gestation Incision Type Labor Labor Length Hrs Delivered By Post Complications Tubal Sterilization Discharge Date Comments 3 Discharge Information Feeding Method Contraceptive Method Maternal HG B and HCT Levels
--- OUTSIDE RECORDS SUMMARY | 2024-09-09 10:10 | XMS_ITS | Referral Summary ---
Author Organization [facility] [address] Address [address] [place] [address] Care Team Providers Care Vice President Industrial Relations Name Role Phone Cony Dejesus Primary Care Provider [phone] Allergies Active Allergy Reactions Criticality Noted Date Comments Sulfa (Sulfonamide Antibiotics) Itching,Rash Medium Medications metoprolol XL (TOPROL-XL) 50 mg extended release tablet TAKE 1 TABLET BY MOUTH EVERY DAY 90 tablet 3 10/01/2023 Active Active Problems Problem Noted Date Diagnosed Date Morbid obesity 10/23/2022 Palpitations 09/11/2022 Lipid screening 09/11/2022 Social History Tobacco Use Types Packs/Day Years Used Date Smoking Tobacco: Never Smokeless Tobacco: Never Tobacco Cessation:Counseling Given: Not Answered Personal Safety Answer Date Recorded Getting School Help Needed Not on file 06/21 Comments Unknown Sex and Gender Information Value Date Recorded Sex Assigned at Not on file Legal Sex Female 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 Gender Identity Not on file Sexual Orientation Not on file Last Filed Vital Signs Vital Sign Reading Time Taken Comments Blood Pressure 122/70 07/30/2023 8:20 AM PRINCIPAL ELECTRICAL ENGINEER Pulse 62 07/30/2023 8:20 AM PRINCIPAL ELECTRICAL ENGINEER Temperature - - Respiratory Rate - - Oxygen Saturation 98% 07/30/2023 8:20 AM PRINCIPAL ELECTRICAL ENGINEER Inhaled Oxygen Concentration - - Weight 140.6 kg (310 lb) 07/30/2023 8:20 AM PRINCIPAL ELECTRICAL ENGINEER Height 170.2 cm (5' 7 ) 07/30/2023 8:20 AM PRINCIPAL ELECTRICAL ENGINEER Body Mass Index 48.55 07/30/2023 8:20 AM PRINCIPAL ELECTRICAL ENGINEER Plan of Treatment Not on file [facility] Care Teams Vice President Industrial Relations Relationship Specialty Start Date End Date Cony Dejesus PA [address] [place] [id number] PCP - General Family Practice 08/21/22
--- OUTSIDE RECORDS SUMMARY | 2024-09-09 10:10 | XMS_ITS | Clinical Summary ---
Author Organization [facility] Address [address] [place] [address] Care Team Providers Care Panel Laminator Name Role Phone Unavailable Primary Care Provider Unavailabl e Source Comments [facility],non-owned Affiliates and Associated Physician Practices is amultiple site organization consisting of ambulatory clinics and hospital sitesin [place], [place], [place] and [place]. This disclosure is being madepursuant to the Care Everywhere program and may not contain all information available regarding this patient. Last updated 18.[facility] Allergies Active Allergy Reactions Criticality Noted Date Comments Sulfa Drugs Rash,Itching Low 03/21/2010 Medications * Be aware that medications may not be up to date on this document. Alwaysverify current medications with the patient. Medication Sig Dispensed Refills Start Date End Date Status acetaminophen (TYLENOL) 325 MG tablet Take 325 mg by mouth every 4 hours as needed. Maximum allowable Acetaminophen amount = 4 Grams / 24 hours. Active ibuprofen (MOTRIN) 600 MG tablet Take 1 Tab by mouth every 6 hours as needed for Pain. 60 Tab 0 03/29/2010 Active labetalol (NORMODYNE; TRANDATE) 200 MG tablet Take 2 Tabs by mouth every 8 hours. 60 Tab 2 03/29/2010 Active hydrochlorothiazide (HYDRODIURIL) 25 MG tablet Take 1 Tab by mouth 2 times daily. 60 Tab 1 03/29/2010 Active docusate sodium (COLACE) 100 MG capsule Take 1-2 Caps by mouth nightly as needed for Constipation. 60 Cap 0 03/29/2010 Active w/o Vit A; w/ Fe Fum-FA (-U) 106-1 MG capsule Take 1 Cap by mouth daily. 90 Cap 1 03/29/2010 Active NIFEdipine CR 24hr (ADALAT CC) 30 MG tablet Take 1 Tab by mouth daily. Take on an empty stomach. 30 Tab 2 03/29/2010 Active Active Problems Problem Noted Date Diagnosed Date Obesity affecting , antepartum 04/17/20 14 Overview (04/21/2015): Previous delivery, antepartum condition or complication 04/17/2014 Hx of preeclampsia, prior , currently p regnant 04/17/2014 History of delivery, currently 04/17/2014 Evaluate anatomy not seen on prior sonogram 03/16 Resolved Problems Problem Noted Date Diagnosed Date Resolved Date Evaluate anatomy not seen on prior sonogram 04/13/2014 04/13/2014 Chronic hypertension with de la garza perimposed preeclampsia 03/24/2010 04/13/2014 Overview (03/24/2010): 27g protein in 24h urine at 24w Severe pre-eclampsia 03/24/2010 014 Overview (11/05/2014): Morbid obesity 03/22/2010 04/13/2014 Supervision of other high-risk 03/22/2010 04/13/2014 Overview (04/21/2015): Dating: LMP=21 week ultrasound. Need documentation O+/I/-/-, HIV NR Immunizations Name Administration Dates Next Due TDAP (7yrs+) 03/28/2010 Family History Medical History Relation Name Comments Diabetes Maternal Grandfather Diabetes Maternal Grandmother Relation Name Status Comments Father Alive Maternal Grandfather Maternal Grandmother Mother Alive Social History Tobacco Use Types Packs/Day Years Used Date Smoking Tobacco: Never Comments:TRIED SMOKING FOR 1 MONTH AT AGE 16 YRS Alcohol Use Standard Drinks/Week Comments No 0 (1 standard drink = 0.6 oz pure alcohol) SOCIAL DRINKER. NO DRINKING DURING PREG Sex and Gender Information Value Date Recorded Sex Assigned at Not on file Gender Identity Not on file Sexual Orientation Not on file Last Filed Vital Signs Vital Sign Reading Time Taken Comments Blood Pressure 155/96 03/29/2010 3:00 PM CDT Pulse 71 03/29/2010 3:00 PM CDT Temperature 37.2 C (98.9 F) 03/29/2010 2:00 PM CDT Respiratory Rate 18 03/29/2010 8:45 AM CDT Oxygen Saturation 99% 03/29/2010 2:00 PM CDT Inhaled Oxygen Concentration 96% 03/27/2010 1 2:35 PM CDT ra Weight 144.7 kg (319 lb) 03/25/2010 10:00 AM CDT Height 172.7 cm (5' 8 ) 03/21/2010 11:14 PM CDT Body Mass Index 48.5 03/21/2010 11:14 PM CDT Plan of Treatment Health Maintenance Due Date Last Done Comments LIPID TESTING 1982 MAMMOGRAM 1982 PAP SMEAR 1982 HIV SCREENING 1997 HEPATITIS C SCREENING 10/13/2000 HEPATITIS B VACCINE (1 of 3 - 19+ 3-dose series) 2001 DTAP/TDAP/TD VACCINES (2 - T d or Tdap) 03/28/2020 03/28/2010 COVID-19 VACCINE (2023-2 5 season) 2024 INFLUENZA VACCINE (#1) 2024 DEPRESSION SCREENING 06/14/2024 ZOSTER VACCINE (1 of 2) 2032 HIB VACCINE Aged Out No longer eligi ble based on patient's age to complete this topic HPV VACCINE Aged Out No longer eligi ble based on patient's age to complete this topic MENINGOCOCCAL (Group B) VACC INE SHARED DECISION-MAKING Aged Out No longer eligibl e based on patient's age to complete this topic MENINGOCOCCAL GROUPS A/C/Y/W VACCINE Aged Out No longer eligible b ased on patient's age to complete this topic PNEUMOCOCCAL VACCINE Aged Out No long er eligible based on patient's age to complete this topic Advance Directives * Full Code (Latest Code Status on File) Date Activated Date Inactivated Comments 03/22/2010 12:39 AM 03/30/2010 4:45 AM
--- OUTSIDE RECORDS SUMMARY | 2024-09-09 10:12 | XMS_ITS ---
Author Organization Unknown Medications Medication Instructions Effective Dates (start - stop) Status 0.5 ML Bordetella pertussis filamentous hemagglutinin vaccine, inactivated 0.016 MG/ML / Bordetella pertussis pertactin vaccine, inactivated 0.005 MG/ML / Bordetella pertussis toxoid vaccine, inactivated 0.016 MG/ML / diphtheria toxoid vaccine, inactivated 5 UNT/ML / tetanus toxoid vaccine, inactivated 10 UNT/ML Prefilled Syringe [Boostrix] 0125-65-40P25:00:00.000+00:0 0 - Completed codeine phosphate 2 MG/ML / guaifenesin 20 MG/ML Oral Solution 9740-90-88O70:00:00.000+00:0 0 - Completed prednisone 10 MG Oral Tablet 08-13-23:00:00.000+00:00 - Completed 120 ACTUAT fluticasone propi sridhar 0.11 MG/ACTUAT Metered Dose Inhaler [Flovent] 1500-45-52J89:00:00.000+00:0 0 - Completed - [id number]:00 :00.000+00:00 - Completed [id number] 200 ACTUAT albuter ol 0.09 MG/ACTUAT Metered Dose Inhaler [id number]:00:00.000+00:0 0 - Completed prednisone 20 MG Oral Tablet 07-26-29T:00:00.000+00:00 - Completed prednisone 10 MG Oral Tablet 08-12-16:00:00.000+00:00 - Completed 24 HR metoprolol succinate 5 0 MG Extended Release Oral Tablet 1224-06-47J12:00:00.000+0 0:00 - Completed cefdinir 300 MG Oral Capsule 08-13-14:00:00.000+00:00 - Completed benzonatate 100 MG Oral Capsule [id number]:00:00.000+00:00 - Completed doxycycline monohydrate 100 MG Oral Capsule 3896-94-88N94:00:00.000+00:0 0 - Completed cefdinir 300 MG Oral Capsule 08-12-16:00:00.000+00:00 - Completed - [id number]:00 :00.000+00:00 - Completed 24 HR metoprolol succinate 5 0 MG Extended Release Oral Tablet [id number]:00:00.000+0 0:00 - Completed montelukast 10 MG Oral Tablet 06-07-26:00:00.000+00:00 - Completed 24 HR metoprolol succinate 2 5 MG Extended Release Oral Tablet [id number]:00:00.000+0 0:00 - Completed Patient Care team information Name Category Status Period Participants - - Proposed period not known -
--- NOTE | 2024-09-09 10:17 | ED_ITS ---
HPI - General Adult General Chief complaint: Ear Stated complaint: Stopped up/hard to hear Time Seen by Provider: 09/09/24 10:18 Source: patient Mode of arrival: ambulatory Limitations: no limitations History of Present Illness HPI narrative: 43-year-old female patient presents to the [facility] with complaints of left ear pain. Patient states she has been dealing with cold and flu-like symptoms for the past week and yesterday started having a muffling and pains the left ear. Patient states she has had multiple ear infections and surgeries before in the past. Patient states her fevers got as high as 100.4 but fevers have since resolved. Continues to have a cough and little bit of a runny nose. Patient has been taking [id number] Zyrtec D and Flonase for her symptoms Related Data Home Medications ?Medication ?Instructions ?Recorded ?Confirmed ?Last Taken ?Type drospirenone (contraceptive) 4 mg 4 mg PO DAILY 09/09/24 09/09/24 Unknown History (28) tablet (Slynd) Allergies Allergy/AdvReac Type Severity Reaction Status Date / Time Sulfa (Sulfonamide Allergy Mild RASH,ITCHIN Verified 09/09/24 10:20 Antibiotics) G Review of Systems Review of Systems: CONSTITUTIONAL: positive fever, body aches and chills, denies sweats. EYES: Denies visual changes, redness, or discharge. ENT: positive rhinorrhea, congestion, denies sore throat, positive left otalgia. CARDIOVASCULAR: Denies chest pain, palpitations, or edema. RESPIRATORY: positive cough , denies dyspnea. GASTROINTESTINAL: Denies abdominal pain, nausea, vomiting, or diarrhea. GENITOURINARY: Denies dysuria or hematuria. SKIN: Denies rash or itching. MUSCULOSKELETAL: Denies back pain, joint pain, or myalgia. NEUROLOGIC: Denies headache, numbness, or weakness. PSYCHIATRIC: Denies anxiety or depression. [facility]LY [facility] Past Medical History Medical History (Updated 09/09/24 @ 10:32 by ELIZABETH Major) Hypertension Surgical History Surgical History (Updated 09/09/24 @ 10:32 by ELIZABETH Major) History of ear surgery History of tonsillectomy Social History Social History Smoking status: Never smoker Alcohol intake: current Alcohol use details: weekends Substance use: never Substance use type: does not use Lack of Transportation: No Lack of Food: Never True Current Housing: I Have Housing Concerned About Future Housing: No Difficulty Paying Gas/Electric Bills: No Difficulty Paying for Meds: No Currently Unemployed: No Education: Associate Degree Difficulty w/ Childcare or Family Care: No Living arrangements: with family Occupation/Education: occupation Gender identity (if verbalized by the patient): Female Sexual Orientation (if Verbalized by the Patient): Straight or Heterosexual Comments At the time of my signature I agree with nursing past medical history, surgical, social, and family history. There is no relevant family history pertinent to the presenting complaint. Exam Narrative: GENERAL: Well-appearing, well-nourished, and in no acute distress. HEAD: Normocephalic, atraumatic. EYES: PERRLA and EOMI. ENT: Nares with erythema edema noted bilaterally., no rhinorrhea or epistaxis. Mucous membranes moist. Posterior pharynx with no erythema, tonsillar enlargement, exudates or lesions present. The left TM does appear to have some fluid and lytes erythema noted. There is some scar tissue present. NECK: Supple. No lymphadenopathy CHEST: Clear to auscultation. No respiratory distress. HEART: Regular rate and rhythm. No murmur heard. Normal peripheral pulses. ABDOMEN: Soft, nontender, nondistended, normal active bowel sounds. EXTREMITIES: Normal range of motion. No edema. SKIN: Warm, dry, no rash. NEURO: No focal deficits. Alert and oriented x3. Course Course Level of Care: Express Care Visit Vital Signs Vital signs: Vital Signs Temperature 36.9 C 09/09/24 10:19 Pulse Rate 85 09/09/24 10:19 Respiratory Rate 18 09/09/24 10:19 Blood Pressure 147/96 H 09/09/24 10:19 Pulse Oximetry 100 09/09/24 10:19 Oxygen Delivery Room Air 09/09/24 10:19 Temperature 36.9 C 09/09/24 10:19 Pulse Rate 85 09/09/24 10:19 Respiratory Rate 18 09/09/24 10:19 Blood Pressure 147/96 H 09/09/24 10:19 Pulse Oximetry 100 09/09/24 10:19 Oxygen Delivery Room Air 09/09/24 10:19 Vital signs reviewed. Medical Decision Making MDM Narrative Medical decision making narrative: Discussed with patient we will go ahead discharge her home with oral antibiotics for a left-sided ear infection but I highly encouraged that she continue taking her Zyrtec D and Flonase to help with the remaining ear of the fluid behind her ears. Patient verbalized understanding denies any other questions or concerns at this time. Differential Diagnosis Differential Diagnosis: Differential diagnosis: Allergic rhinitis, chronic sinusitis, tonsillitis, acute sinusitis, infectious mononucleosis, seasonal influenza, pertussis, diphtheria, meningococcal disease, viral syndrome, viral bronchitis, RSV, COVID- 19 Vital Signs Vital Signs: Vital Signs Temperature 36.9 C 09/09/24 10:19 Pulse Rate 85 09/09/24 10:19 Respiratory Rate 18 09/09/24 10:19 Blood Pressure 147/96 H 09/09/24 10:19 Pulse Oximetry 100 09/09/24 10:19 Oxygen Delivery Room Air 09/09/24 10:19 Temperature 36.9 C 09/09/24 10:19 Pulse Rate 85 09/09/24 10:19 Respiratory Rate 18 09/09/24 10:19 Blood Pressure 147/96 H 09/09/24 10:19 Pulse Oximetry 100 09/09/24 10:19 Oxygen Delivery Room Air 09/09/24 10:19 Critical Care Time Critical Care Time Critical Care Time: No Discharge Plan Discharge Clinical Impression: Acute left otitis media Patient Disposition: Home, Self-Care Condition: Stable Instructions: Antibiotic Form, Ear Infection (ED) Additional Instructions: An ear infection is also called otitis media. An ear infection may be caused by blocked or swollen eustachian tubes. Eustachian tubes connect the middle ear to the back of the nose and throat. They drain fluid from the middle ear. With an ear infection, fluid builds up and is infected by germs. The germs grow easily in fluid trapped behind the eardrum. DISCHARGE INSTRUCTIONS: Call 911 or have someone call 911 for the following: You have a seizure. Return to the emergency department if: You have a fever and a stiff neck. Contact your healthcare provider if: Your ear pain gets worse or does not go away, even after treatment. The outside of your ear is red or swollen. You are vomiting or have diarrhea. You have fluid coming from your ear. You have questions or concerns about your condition or care. Medicines: Acetaminophen decreases pain and fever. It is available without a doctor's order. Ask how much to take and how often to take it. Follow directions. Read the labels of all other medicines you are using to see if they also contain acetaminophen, or ask your doctor or pharmacist. Acetaminophen can cause liver damage if not taken correctly. Do not use more than 4 grams (4,000 milligrams) total of acetaminophen in one day. NSAIDs , such as ibuprofen, help decrease swelling, pain, and fever. This medicine is available with or without a doctor's order. NSAIDs can cause stomach bleeding or kidney problems in certain people. If you take blood thinner medicine, always ask your healthcare provider if NSAIDs are safe for you. Always read the medicine label and follow directions. Ear drops help treat your ear pain. Antibiotics help treat a bacterial infection that caused your ear infection. Take your medicine as directed. Contact your healthcare provider if you think your medicine is not helping or if you have side effects. Tell him or her if you are allergic to any medicine. Keep a list of the medicines, vitamins, and herbs you take. Include the amounts, and when and why you take them. Bring the list or the pill bottles to follow-up visits. Carry your medicine list with you in case of an emergency. Prevent an ear infection: Wash your hands often. Use soap and water. Wash your hands after you use the bathroom, change a child's diapers, or sneeze. Wash your hands before you prepare or eat food. Handwashing Stay away from people who are ill. Some germs are easily and quickly spread through contact. Patient Language: [place] Prescriptions: New amoxicillin-pot clavulanate 875-125 mg tablet 1 tablet PO Q12H 7 Days Qty: 14 0RF No Action Slynd 4 mg (28) tablet 4 mg PO DAILY metoprolol succinate 25 mg tablet extended release 24 hr 25 mg PO DAILY Qty: 30 1RF ibuprofen 800 mg tablet 800 mg PO TID PRN (Reason: pain) Qty: 30 0RF Follow-up/Referrals: Cony Dejesus PA-C [Primary Care Provider] - Time of Disposition: 10:30
[2024-09-09 10:19] VITALS: BP 147/96; PULSE 85; RESP 18; TEMP 36.9; O2SAT 100
== END 2024-09-09 10:32 | disposition home or self-care (01) ==
PROVIDERS: Emergency Provider Nurse Practitioner Family; PCP Physician Assistant Medical
DX: H66.92 Otitis media, unspecified, left ear (principal); I10 Essential (primary) hypertension
CPT/HCPCS: 99213; G0463